=== PATIENT | female | born 2000 | race Caucasian/White ===

== ENCOUNTER 2021-09-17 23:34 | Emergency (ER) | payer OTHER ==
[~2021-09-17] VITALS: Ht 149.9 cm; Wt 63.5 kg
[2021-09-18 00:07] LABS: BASOPHILS % (AUTO) 0.3 % (0.0-5.0); EOSINOPHILS % (AUTO) 0.7 % (0.0-8.0); HEMATOCRIT 39.1 % (36-48); LYMPHOCYTES % (AUTO) 42.5 % (21.0-51.0); MEAN CORPUSCULAR HEMOGLOBIN 29.4 pg (27.0-33.0); MEAN CORPUSCULAR VOLUME 86.5 fL (79-99); NEUTROPHILS % (AUTO) 39.1 % (40.0-77.0); PLATELET COUNT (AUTO) 267 K/uL (130-400); RED BLOOD CELL COUNT(AUTO) 4.52 MIL/uL (4.00-5.50); RED CELL DISTRIBUTION WIDTH 12.5 % (11.0-15.5); WHITE BLOOD COUNT (AUTO) 7.1 K/uL (4.8-10.8)
[2021-09-18 00:26] LABS: CREATININE 0.8 mg/dL (0.5-1.5); POTASSIUM 3.7 mmol/L (3.5-5.1)
[2021-09-18 00:32] LABS: ALBUMIN 3.9 g/dL (3.5-5.0); TOTAL PROTEIN, SERUM 7.9 g/dL (6.0-8.3)
[2021-09-18] MEDS ORDERED: DEXAMETHASONE SOD PHOSPHATE 4 MG/ML 1ML VIAL IVP ONE (01:00)
[2021-09-18] MEDS ORDERED: KETOROLAC 15MG/ML VIAL (15MG/ML) IV ONE (01:00)
[2021-09-18] MEDS ORDERED: 0.9%NACL 1000ML 1,000 ML IV ONE (01:00)
[2021-09-18] MEDS ORDERED: KETOROLAC 15MG/ML VIAL (15MG/ML) ONE (01:05)
[2021-09-18] MEDS ORDERED: DEXAMETHASONE SOD PHOSPHATE 4 MG/ML 1ML VIAL ONE (01:05)
[2021-09-18] MEDS ORDERED: GUAIFENESIN-DM 200/20 MG 10 ML PO ONE (01:30)
[2021-09-18] MEDS ORDERED: METH4TAB3 PO (01:44)
[2021-09-18] MEDS ORDERED: IBUP-2070 PO (01:44)
[2021-09-18] MEDS ORDERED: D-ME118S47 PO (01:44)
[2021-09-18 02:01] VITALS: BP 122/69
== END 2021-09-18 02:08 | disposition home or self-care (01) ==
LOC: EDH 23:34
DX: U07.1 COVID-19 (principal); Z79.1 Long term (current) use of non-steroidal anti-inflammatories (NSAID); Z79.52 Long term (current) use of systemic steroids
CPT/HCPCS: 99284; 71045; 87635; 80053; 84703; 85025; 87804 ×2; 36415; 96374; 96361; 96375; C9803; J1100; J7030; J1885